=== PATIENT | male | born 1940 | race Caucasian/White ===

== ENCOUNTER → 2016-12-15 | Outpatient (CLI) | payer MEDICARE, BC ==
[2016-12-15 09:16] LABS: BASO % 0.7 % (0.0-1.0); EOS # 0.1 K/mm3 (0.0-0.50); EOS % 2.1 % (0.0-3.0); LARGE UNSTAINED CELL # 0.1 K/mm3 (0.0-0.4); LARGE UNSTAINED CELL % 1.7 % (0.0-4.0); LYMPH # 0.9 K/mm3 (1.5-4.5); LYMPH % 21.1 % (24.0-44.0); MEAN CORPUSCULAR HEMOGLOBIN 31.8 pg (27.0-33.0); MEAN CORPUSCULAR HGB CONC 33.9 g/dl (32.0-36.5); MEAN CORPUSCULAR VOLUME 93.7 fl (80.0-96.0); MONO # 0.2 K/mm3 (0.0-0.8); MONO % 4.8 % (0.0-5.0); NEUTROPHILS % 69.6 % (36.0-66.0); PLATELET COUNT, AUTOMATED 184 k/mm3 (150-450); RED CELL DISTRIBUTION WIDTH 12.6 % (11.5-14.5); WHITE BLOOD COUNT 4.3 K/mm3 (4.0-10.0)
[2016-12-15 09:31] LABS: ANION GAP 7 MEQ/L (8-16); BLOOD UREA NITROGEN 13 MG/DL (7-18); CALCIUM LEVEL 8.6 MG/DL (8.8-10.2); CARBON DIOXIDE LEVEL 28 MEQ/L (21-32); CHLORIDE LEVEL 108 MEQ/L (98-107); CREATININE FOR GFR 1.06 MG/DL (0.70-1.30); GLOMERULAR FILTRATION RATE > 60.0 (>42); GLUCOSE, FASTING 101 MG/DL (83-110); POTASSIUM SERUM 4.1 MEQ/L (3.5-5.1); SODIUM LEVEL 143 MEQ/L (136-145)
== END ==
LOC: M LAB 08:49
PROVIDERS: ATTEND Internal Medicine Cardiovascular Disease
DX: R07.2 Precordial pain (principal); R06.02 Shortness of breath

== ENCOUNTER → 2017-06-29 | Outpatient (CLI) | payer MEDICARE, BC ==
[2017-06-29 12:56] LABS: BASO % 0.7 % (0.0-1.0); EOS # 0.1 K/mm3 (0.0-0.50); EOS % 2.1 % (0.0-3.0); LARGE UNSTAINED CELL # 0.1 K/mm3 (0.0-0.4); LARGE UNSTAINED CELL % 1.5 % (0.0-4.0); LYMPH # 1.1 K/mm3 (1.5-4.5); LYMPH % 23.1 % (24.0-44.0); MEAN CORPUSCULAR HEMOGLOBIN 32.4 pg (27.0-33.0); MEAN CORPUSCULAR HGB CONC 34.6 g/dl (32.0-36.5); MEAN CORPUSCULAR VOLUME 93.4 fl (80.0-96.0); MONO # 0.2 K/mm3 (0.0-0.8); MONO % 4.7 % (0.0-5.0); NEUTROPHILS # 3.1 K/mm3 (1.8-7.7); NEUTROPHILS % 67.9 % (36.0-66.0); PLATELET COUNT, AUTOMATED 177 k/mm3 (150-450); WHITE BLOOD COUNT 4.6 K/mm3 (4.0-10.0)
[2017-06-29 13:30] LABS: ANION GAP 8 MEQ/L (8-16); BLOOD UREA NITROGEN 12 MG/DL (7-18); CALCIUM LEVEL 8.9 MG/DL (8.8-10.2); CARBON DIOXIDE LEVEL 27 MEQ/L (21-32); CHLORIDE LEVEL 106 MEQ/L (98-107); CREATININE FOR GFR 0.88 MG/DL (0.70-1.30); GLOMERULAR FILTRATION RATE > 60.0 (>42); GLUCOSE, FASTING 90 MG/DL (83-110); POTASSIUM SERUM 4.1 MEQ/L (3.5-5.1); SODIUM LEVEL 141 MEQ/L (136-145)
== END ==
LOC: M LAB 12:07
PROVIDERS: ATTEND Internal Medicine Cardiovascular Disease
DX: I48.0 Paroxysmal atrial fibrillation (principal); R06.02 Shortness of breath

== ENCOUNTER → 2019-04-08 | Outpatient (CLI) | payer MEDICARE, BC ==
--- NOTE | 2019-04-08 11:53 | REP ---
CT lumbar spine without contrast: History: Incontinence. Anesthesia of skin. No comparison lumbar imaging. Technique: Helical scanning is acquired. 4 mm axial images are generated. Coronal and sagittal multiplanar re-formation images are generated. Lumbar spine findings: Lumbar vertebral body heights are preserved. Alignment is normal. There is no evidence of spondylolysis or spondylolisthesis. The L5-S1 disc is ankylosed. Fairly large anterior osteophytes are seen at L4-5 and L3-4 as well as at T12-L1. There is a 1.3 cm Schmorl's node at the inferior endplate of the L4 vertebral body. There is a small Schmorl's node superiorly at L4. There is no lumbar disc herniation. Minimal diffuse disc bulging is seen in the posterior margin of the L2-3, L3-4, and L4-5 discs. There is facet hypertrophy bilaterally at L5-S1, L4-5, and to a lesser extent L3-4. On the left at L4-5, there is bony neural foraminal encroachment from bony hypertrophy of the superior articulating facet of L5 at the 4-5 facet joint level. No other bony neural foraminal encroachment is appreciated. Impression: Degenerative spondylosis changes. Left-sided L4-5 neural foraminal narrowing as above. Electronically Signed by Peewee Barriga MD 04/08/2019 02:48 P
== END ==
LOC: M RAD 09:56
PROVIDERS: ATTEND Internal Medicine Cardiovascular Disease
DX: M25.78 Osteophyte, vertebrae (principal); R20.0 Anesthesia of skin; N39.42 Incontinence without sensory awareness; M51.46 Schmorl's nodes, lumbar region

== ENCOUNTER → 2019-04-13 | Outpatient (CLI) | payer MEDICARE, BC ==
--- NOTE | 2019-04-13 12:13 | REP ---
Bilateral lower extremity arterial Doppler ultrasound: History: Pain in the right and left leg. Skin paresthesias. Findings: Ankle brachial indices are normal. 1.1 on the right and 1.1 on the left. There is mild atherosclerotic plaquing throughout the lower extremities. Normal triphasic and biphasic waveforms are seen bilaterally. No high-grade stenosis is seen. Velocity chart right lower extremity arteries: CF A 109 cm/S Profunda 62 Proximal SFA 131 Mid SFA 109 Distal SFA 71 Popliteal 67 Proximal AT A 65 Tibioperoneal trunk 62 Proximal AVIATION ELECT[employer]ICAL TECHNICIAN 56 Distal AVIATION ELECTRICAL TECHNICIAN 54 Distal AT A 85 Velocity chart left lower extremity arteries: CF A 107 cm/S Profunda 42 Proximal SFA 96 Mid SFA 80 Distal SFA 67 Popliteal 53 Proximal AT A 46 Tibioperoneal trunk 53 Proximal AVIATION ELECTRICAL TECHNICIAN 33 Distal AVIATION ELECTRICAL TECHNICIAN 50 Distal AT A 70 Electronically Signed by Peewee Barriga MD 04/13/2019 12:05 P
== END ==
LOC: M RAD 09:39
PROVIDERS: ATTEND Internal Medicine Cardiovascular Disease
DX: M79.604 Pain in right leg (principal); M79.605 Pain in left leg; R20.2 Paresthesia of skin; Z86.79 Personal history of other diseases of the circulatory system; R09.89 Other specified symptoms and signs involving the circulatory and respiratory systems

== ENCOUNTER → 2019-09-29 | Outpatient (CLI) | payer MEDICARE, BC | LOC: M LAB 10:42 | PROVIDERS: ATTEND Physician Assistant | DX: N40.1 Benign prostatic hyperplasia with lower urinary tract symptoms (principal) ==

== ENCOUNTER → 2020-08-22 | Outpatient (CLI) | payer MEDICARE, BC ==
[2020-08-22 14:43] LABS: BLOOD UREA NITROGEN 16 MG/DL (7-18); CALCIUM LEVEL 9.8 MG/DL (8.8-10.2); CARBON DIOXIDE LEVEL 26 MEQ/L (21-32); CHLORIDE LEVEL 106 MEQ/L (98-107); CREATININE FOR GFR 0.98 MG/DL (0.70-1.30); GLOMERULAR FILTRATION RATE > 60.0 (>42); GLUCOSE, FASTING 88 MG/DL (70-100); POTASSIUM SERUM 4.1 MEQ/L (3.5-5.1); SODIUM LEVEL 140 MEQ/L (136-145)
== END ==
LOC: M LAB 13:25
PROVIDERS: ATTEND Internal Medicine Cardiovascular Disease
DX: I48.0 Paroxysmal atrial fibrillation (principal); I50.9 Heart failure, unspecified; Z79.899 Other long term (current) drug therapy

== ENCOUNTER → 2023-04-21 | Outpatient (CLI) | payer MEDICARE, BC | LOC: M LAB 09:09 | PROVIDERS: ATTEND Physician Assistant | DX: Z85.46 Personal history of malignant neoplasm of prostate (principal) ==